=== PATIENT | female | born 1955 | race Caucasian/White ===

== ENCOUNTER 2021-04-27 06:18 | Inpatient (IN) | payer OTHER, BC ==
[2021-04-19 17:49] VITALS: BMI 20.9
[2021-04-27] MEDS ORDERED: TRANEXAMIC ACID 1000 MG/10 ML VIAL IVPUSH ONE (06:36)
[2021-04-27] MEDS ORDERED: CELECOXIB 200 MG CAPSULE PO ONE (06:36)
[2021-04-27] MEDS ORDERED: CEFAZOLIN 2 GM in DEXTROSE 5%-WATER - 50 ML IVPB ONE (06:36)
[2021-04-27] MEDS ORDERED: BUPIVACAINE LIPOSOME/PF (EXPAREL) 266 MG/20 ML VIAL ONE (06:41)
[2021-04-27] MEDS ORDERED: BUPIVACAINE HCL/PF 0.5% (5MG/ML) 10 ML VIAL ONE (06:41)
[2021-04-27] MEDS ORDERED: MIDAZOLAM HCL 2 MG/2 ML SINGLE DOSE VIAL ONE ×2 (06:41→09:25)
[2021-04-27] MEDS ORDERED: SODIUM CHLORIDE 0.9% P/F 10 ML VIAL IJ ONE (06:41)
[2021-04-27] MEDS ORDERED: BUPIVACAINE HCL 50 ML ONE (07:07)
[2021-04-27] MEDS ORDERED: PROPOFOL 20 ML ONE ×3 (07:09)
[2021-04-27] MEDS ORDERED: ceFAZolin SODIUM 1 GM VIAL ONE ×3 (07:12→16:10)
[2021-04-27] MEDS ORDERED: VANCOMYCIN 1,000 MG VIAL (RESTRICTED TO ID ONLY) ONE (07:12)
[2021-04-27] MEDS ORDERED: MAG HYDROX/AL HYDROX/SIMETH 30 ML UNIT-DOSE CUP PO PRN (07:52)
[2021-04-27] MEDS ORDERED: ONDANSETRON 4 MG/2 ML VIAL IVPUSH PRN ×2 (07:52→10:26)
[2021-04-27] MEDS ORDERED: LACTATED RINGERS SOLUTION 1,000 ML IV SCH ×2 (08:00→10:30)
[2021-04-27] MEDS ORDERED: TRANEXAMIC ACID 1000 MG/10 ML VIAL ONE (08:29)
[2021-04-27] MEDS ORDERED: DEXAMETHASONE SOD PHOSPHATE 4 MG/1 ML VIAL ONE (08:29)
[2021-04-27] MEDS ORDERED: PHENYLEPHRINE HCL 10 MG/1 ML SINGLE DOSE VIAL ONE ×2 (08:29→10:09)
[2021-04-27] MEDS ORDERED: ONDANSETRON 4 MG/2 ML VIAL ONE ×2 (08:29→12:27)
[2021-04-27] MEDS ORDERED: KETOROLAC TROMETHAMINE 30 MG/1 ML VIAL ONE ×2 (08:29→10:53)
[2021-04-27] MEDS ORDERED: ePHEDrine SULFATE 50 MG/1 ML AMPULE ONE (08:47)
[2021-04-27] MEDS ORDERED: oxyCODONE HCL 5 MG TABLET PO PRN ×2 (10:26)
[2021-04-27] MEDS ORDERED: ACETAMINOPHEN 1000 MG/100 ML BAG IVPB ONE (10:26)
[2021-04-27] MEDS: KETOROLAC TROMETHAMINE 30 MG/1 ML VIAL IVPUSH SCH ×2 (10:40→16:18)
[2021-04-27] MEDS: ACETAMINOPHEN 500 MG TABLET (FP) PO SCH ×3 (10:50→21:45)
[2021-04-27] MEDS ORDERED: ACETAMINOPHEN INJECTION 100 ML IVPB ONE (10:53)
[2021-04-27] MEDS: ONDANSETRON 4 MG/2 ML VIAL IVPUSH PRN (12:33)
[2021-04-27] MEDS ORDERED: traMADol HCL 50 MG TABLET ONE (12:50)
[2021-04-27] MEDS: traMADol HCL 50 MG TABLET PO PRN (12:50)
[2021-04-27] MEDS: PANTOPRAZOLE 40 MG TABLET PO SCH (15:05)
[2021-04-27] MEDS: MULTIVITAMINS (DAILY MVI) TABLET (FP) PO SCH (15:05)
[2021-04-27] MEDS: SENNOSIDES/DOCUSATE COMBO (SENNA PLUS) TABLET (UD) PO SCH ×2 (15:05→21:46)
[2021-04-27] MEDS ORDERED: DEXTROSE 5%-WATER - 100 ML IVPB ONE (16:10)
[2021-04-27] MEDS: CEFAZOLIN 2 GM in DEXTROSE 5%-WATER - 100 ML IVPB SCH ×2 (16:18→17:47)
[2021-04-27] MEDS: oxyCODONE HCL 10 MG SUSTAINED ACTING TABLET PO SCH (21:44)
[2021-04-28] MEDS ORDERED: CEFAZOLIN 2 GM in DEXTROSE 5%-WATER - 100 ML IVPB SCH
[2021-04-28] MEDS ORDERED: ceFAZolin SODIUM 1 GM VIAL ONE (03:18)
[2021-04-28] MEDS ORDERED: DEXTROSE 5%-WATER - 100 ML IVPB ONE (03:18)
[2021-04-28] MEDS: traMADol HCL 50 MG TABLET PO PRN ×2 (04:30→09:14)
[2021-04-28] MEDS: ACETAMINOPHEN 500 MG TABLET (FP) PO SCH ×4 (04:35→23:45)
[2021-04-28] MEDS: ONDANSETRON 4 MG/2 ML VIAL IVPUSH PRN ×2 (07:00→16:04)
[2021-04-28] MEDS: ASPIRIN 325 MG TABLET PO SCH (09:06)
[2021-04-28] MEDS: SENNOSIDES/DOCUSATE COMBO (SENNA PLUS) TABLET (UD) PO SCH ×2 (09:06→21:30)
[2021-04-28] MEDS: MULTIVITAMINS (DAILY MVI) TABLET (FP) PO SCH (09:07)
[2021-04-28] MEDS: PANTOPRAZOLE 40 MG TABLET PO SCH (09:07)
[2021-04-28] MEDS: oxyCODONE HCL 10 MG SUSTAINED ACTING TABLET PO SCH ×2 (09:11→21:31)
[2021-04-28] MEDS: KETOROLAC TROMETHAMINE 30 MG/1 ML VIAL IVPUSH SCH ×3 (12:33→23:46)
[2021-04-28] MEDS: METOCLOPRAMIDE HCL INJECTION 10 MG/2 ML VIAL IVPUSH PRN (12:35)
[2021-04-28] MEDS ORDERED: SODIUM CHLORIDE 0.9% 500 ML INFUS.BAG IV ONE (15:54)
[2021-04-28] MEDS ORDERED: SODIUM CHLORIDE 1,000 ML IV SCH (16:00)
[2021-04-29] MEDS: ACETAMINOPHEN 500 MG TABLET (FP) PO SCH (04:21)
[2021-04-29] MEDS: METOCLOPRAMIDE HCL INJECTION 10 MG/2 ML VIAL IVPUSH PRN (07:25)
[2021-04-29] MEDS: ASPIRIN 325 MG TABLET PO SCH (07:25)
[2021-04-29] MEDS: KETOROLAC TROMETHAMINE 30 MG/1 ML VIAL IVPUSH SCH (08:06)
[2021-04-29] MEDS ORDERED: REFRIGERATED ANITBIOTICS ONE (08:09)
[2021-04-29] MEDS: PANTOPRAZOLE 40 MG TABLET PO SCH (09:03)
[2021-04-29] MEDS: MULTIVITAMINS (DAILY MVI) TABLET (FP) PO SCH (09:03)
[2021-04-29] MEDS: SENNOSIDES/DOCUSATE COMBO (SENNA PLUS) TABLET (UD) PO SCH (09:03)
[2021-04-29] MEDS: oxyCODONE HCL 10 MG SUSTAINED ACTING TABLET PO SCH (09:04)
[2021-04-29 10:36] VITALS: BP 126/72; PULSE 61; TEMP 98.6
== END 2021-04-29 11:37 | disposition home health service (06) | DRG 470 ==
LOC: FM/S 06:18 → MERGE 10:00 → FM/S 14:02
PROVIDERS: ADMIT Orthopaedic Surgery; ATTEND Orthopaedic Surgery
PROC: 8E0Y0CZ Robotic Assisted Procedure of Lower Extremity, Open Approach (ICD-10-PCS; 2021-04-27)
PROC: 0SRC0J9 Replacement of Right Knee Joint with Synthetic Substitute, Cemented, Open Approach (ICD-10-PCS; principal; 2021-04-27 08:27)
DX: M17.11 Unilateral primary osteoarthritis, right knee (principal)
CPT/HCPCS: 73560-TC-RT-FY; 94760; 97010-GP; 97116-GP; 97162-GP; J0131